=== PATIENT | male | born 1980 | race Caucasian/White ===

== ENCOUNTER 2017-07-26 13:00 | Emergency (ER) | payer OTHER ==
--- NOTE | 2017-07-26 15:30 | ER Document Report ---
ED Medical Screen (RME) - General Chief Complaint: Chest Pain Stated Complaint: CHEST PAIN Time Seen by Provider: 07/26/17 15:26 Notes: The patient is a 36 yo male, PMHx prior spontaneous PTX, presents with 6 hours of left-sided chest pain that is worse with deep breaths. PE: No respiratory distress. Equal breath sounds. Satting 100%. I have greeted and performed a rapid initial assessment of this patient. A comprehensive ED assessment and evaluation of the patient, analysis of test results and completion of the medical decision making process will be conducted by additional ED providers. TRAVEL OUTSIDE OF THE [place] IN LAST 30 DAYS: No - Related Data Allergies/Adverse Reactions: Penicillins Allergy (Verified 07/26/17 13:01) Past Medical History Renal/ Medical History: Denies: Hx Peritoneal Dialysis GI Medical History: Reports: Hx Gastroesophageal Reflux Disease Psychiatric Medical History: Reports: Hx Depression Physical Exam - Vital signs Vitals: Temp Pulse Resp BP Pulse Ox 98.4 F 54 L 18 130/67 H 99 07/26/17 13:09 07/26/17 13:09 07/26/17 13:09 07/26/17 13:09 07/26/17 13:09 Course - Vital Signs Vital signs: Temp Pulse Resp BP Pulse Ox 98.4 F 52 L 18 124/70 100 07/26/17 13:09 07/26/17 15:26 07/26/17 15:26 07/26/17 15:26 07/26/17 15:26
--- NOTE | 2017-07-26 15:58 | RADIOLOGY REPORT (SQ) ---
EXAM DESCRIPTION: CHEST PA/LAT COMPLETED DATE/TIME: 07/26/2017 3:47 pm REASON FOR STUDY: chest pain COMPARISON: None. EXAM PARAMETERS: NUMBER OF VIEWS: two views TECHNIQUE: Digital Frontal and Lateral radiographic views of the chest acquired. RADIATION DOSE: NA LIMITATIONS: none FINDINGS: LUNGS AND PLEURA: No opacities, masses or pneumothorax. No pleural effusion. MEDIASTINUM AND HILAR STRUCTURES: No masses or contour abnormalities. HEART AND VASCULAR STRUCTURES: Heart normal size. No evidence for failure. BONES: No acute findings. HARDWARE: None in the chest. OTHER: No other significant finding. IMPRESSION: NO SIGNIFICANT RADIOGRAPHIC FINDING IN THE CHEST. TECHNICAL DOCUMENTATION: JOB ID: [id number] [employer]- All Rights Reserved
[2017-07-26 16:17] LABS: ABSOLUTE EOSINOPHILS # (AUTO) 0.1 10^3/uL (0.0-0.6); ABSOLUTE LYMPHOCYTES (AUTO) 2.2 10^3/uL (0.5-4.7); ABSOLUTE MONOCYTES (AUTO) 0.5 10^3/uL (0.1-1.4); ABSOLUTE NEUT (AUTO) 5.7 10^3/uL (1.7-8.2); BASOPHILS % (AUTO) 0.4 % (0-2); EOSINOPHILS % (AUTO) 1.5 % (0-6); HEMATOCRIT 44.4 % (37.9-51.0); HEMOGLOBIN 15.3 g/dL (13.5-17.0); MEAN CORPUSCULAR HEMOGLOBIN 32.9 pg (27.0-33.4); MEAN CORPUSCULAR HGB CONC 34.4 g/dL (32.0-36.0); MEAN CORPUSCULAR VOLUME 95 fl (80-97); MONOCYTES % (AUTO) 6.3 % (3-13); PLATELET COUNT 189 10^3/uL (150-450); RED BLOOD COUNT 4.66 10^6/uL (4.35-5.55); RED CELL DISTRIBUTION WIDTH 12.7 % (11.5-14.0); SEGMENTED NEUTROPHILS % (AUTO) 65.8 % (42-78); TOTAL CELLS COUNTED % (AUTO) 100 %; WHITE BLOOD COUNT 8.6 10^3/uL (4.0-10.5)
[2017-07-26 16:40] LABS: ALANINE AMINOTRANSFERASE 24 U/L (21-72); ALBUMIN 4.9 g/dL (3.5-5.0); ALKALINE PHOSPHATASE 68 U/L (38-126); ANION GAP 11 (5-19); ASPARTATE AMINO TRANSFERASE 18 U/L (17-59); BILIRUBIN,DIRECT 0.3 mg/dL (0.0-0.4); BILIRUBIN,TOTAL 0.5 mg/dL (0.2-1.3); BLOOD UREA NITROGEN 11 mg/dL (7-20); CALCIUM 10.1 mg/dL (8.4-10.2); CARBON DIOXIDE 30 mmol/L (22-30); CHLORIDE 104 mmol/L (98-107); CREATINE KINASE 73 U/L (55-170); GLUCOSE 94 mg/dL (75-110); LIPASE 101.2 U/L (23-300); POTASSIUM 4.5 mmol/L (3.6-5.0); SODIUM 144.9 mmol/L (137-145); TOTAL PROTEIN 7.6 g/dL (6.3-8.2)
--- NOTE | 2017-07-26 18:42 | EKG REPORT ---
SEVERITY:- NORMAL ECG - SINUS RHYTHM : Confirmed by: Chandana Tracy MD 26-Jul-2017 18:41:46
--- NOTE | 2017-07-26 20:39 | ER Document Report ---
ED General - General Mode of Arrival: Ambulatory Information source: Patient TRAVEL OUTSIDE OF THE [place] IN LAST 30 DAYS: No <RONEL CHI - Last Filed: 07/27/17 02:52> <DOUGIE CASTANEDA - Last Filed: 07/27/17 02:56> - General Chief Complaint: Chest Pain Stated Complaint: CHEST PAIN Time Seen by Provider: 07/26/17 15:26 Notes: Patient is a 36 year old male that presents to the emergency department today with complaints of left sided chest pain. Patient states that it "hurts to breathe". Patient states that he has had the symptoms in the past when he had a pneumothorax. (RONEL CHI) - Related Data Allergies/Adverse Reactions: Penicillins Allergy (Verified 07/26/17 13:01) Past Medical History - General Information source: Patient, [facility] Records - Social History Smoking Status: Former Smoker Cigarette use (# per day): No Chew tobacco use (# tins/day): Yes Frequency of alcohol use: None Drug Abuse: None Lives with: Family Family History: Reviewed & Not Pertinent Patient has suicidal ideation: No Patient has homicidal ideation: No - Past Medical History Cardiac Medical History: Reports: Hx Hypercholesterolemia GI Medical History: Reports: Hx Gastroesophageal Reflux Disease Psychiatric Medical History: Reports: Hx Depression Traumatic Medical History: Reports: Hx Traumatic Brain Injury Surgical Hx: Negative <RONEL CHI - Last Filed: 07/27/17 02:52> Review of Systems - Review of Systems Constitutional: No symptoms reported EENT: No symptoms reported Cardiovascular: See HPI, Chest pain - left sided Respiratory: denies: Short of breath Gastrointestinal: No symptoms reported Genitourinary: No symptoms reported Male Genitourinary: No symptoms reported Musculoskeletal: No symptoms reported Skin: No symptoms reported Hematologic/Lymphatic: No symptoms reported Neurological/Psychological: No symptoms reported -: Yes All other systems reviewed and negative <RONEL CHI - Last Filed: 07/27/17 02:52> Physical Exam <RONEL CHI - Last Filed: 07/27/17 02:52> <DOUGIE CASTANEDA - Last Filed: 07/27/17 02:56> - Vital signs Vitals: Temp Pulse Resp BP Pulse Ox 98.4 F 54 L 18 130/67 H 99 07/26/17 13:09 07/26/17 13:09 07/26/17 13:09 07/26/17 13:09 07/26/17 13:09 - Notes Notes: Physical Exam: General: Alert, appears well. HEENT: Normocephalic. Atraumatic. PERRL. Extraocular movements intact. Oropharynx clear. Neck: Supple. Non-tender. Respiratory: No respiratory distress. Clear and equal breath sounds bilaterally. Reproducible left lateral chest wall tenderness to palpation. Cardiovascular: Regular rate and rhythm. Abdominal: Normal Inspection. Non-tender. No distension. Normal Bowel Sounds. Back: Non-tender. No deformity or step off. Extremities: Moves all four extremities. Upper extremities: Normal inspection. Normal ROM. Lower extremities: Normal inspection. No edema. Normal ROM. Neurological: Normal cognition. AAOx4. Normal speech. Psychological: Normal affect. Normal Mood. Skin: Warm. Dry. Normal color. (RONEL CHI) Course - Laboratory Result Diagrams: 07/26/17 15:58 07/26/17 15:58 <RONEL CHI - Last Filed: 07/27/17 02:52> - Laboratory Result Diagrams: 07/26/17 15:58 07/26/17 15:58 - Diagnostic Test Radiology reviewed: Reports reviewed - EKG Interpretation by Or EKG shows normal: Sinus rhythm Rate: Normal Rhythm: NSR <DOUGIE CASTANEDA - Last Filed: 07/27/17 02:56> - Re-evaluation Re-evalutation: 07/26 Patient is a 36-year-old male who comes in complaining of chest pain that is worse with breathing and movement. Patient with recent long trip and history of smoking. CTA chest with no acute findings. Troponin negative. No acute findings on EKG. Patient is instructed to take myos-jrx-ofvacdi medications as needed for pain and apply ice or heat. Understands and agrees with plan. Stable for discharge. (DOUGIE CASTANEDA) - Vital Signs Vital signs: Temp Pulse Resp BP Pulse Ox 98.5 F 57 L 16 125/81 100 07/26/17 22:10 07/26/17 22:10 07/26/17 22:10 07/26/17 22:10 07/26/17 22:10 Discharge <RONEL CHI - Last Filed: 07/27/17 02:52> <DOUGIE CASTANEDA - Last Filed: 07/27/17 02:56> - Discharge Clinical Impression: Chest wall pain Condition: Stable Disposition: HOME, SELF-CARE Instructions: Chest Wall Pain ([facility]) Additional Instructions: Please follow-up with your doctor's office. Please take Tylenol or ibuprofen as needed for pain. Avoid doing movements that make your pain worse. Forms: Return to Work Scribe Attestation: 07/26/17 21:56 I personally performed the services described in the documentation, reviewed and edited the documentation which was dictated to the scribe in my presence, and it accurately records my words and actions. (DOUGIE CASTANEDA) Scribe Documentation - Scribe Written by Adama:: Adama Otero, 07/26/2017 [id number] acting as scribe for :: Wodowksi <RONEL CHI - Last Filed: 07/27/17 02:52>
--- NOTE | 2017-07-26 21:34 | RADIOLOGY REPORT (SQ) ---
EXAM DESCRIPTION: CTA CHEST COMPLETED DATE/TIME: 07/26/2017 9:12 pm REASON FOR STUDY: pleuritic cp, recent car trip COMPARISON: None. TECHNIQUE: CT scan of the chest performed using helical scanning technique with dynamic intravenous contrast injection. Images reviewed with lung, soft tissue and bone windows. Reconstructed coronal and sagittal MPR images reviewed. Additional 3 dimensional post-processing performed to develop Maximal Intensity Projection images (IN P). All images stored on PACS. All CT scanners at this facility use dose modulation, iterative reconstruction, and/or weight based d osing when appropriate to reduce radiation dose to as low as reasonably achievable (ALARA). [facility]: Dose Right [facility]: CareDose [facility]: Dose Right [facility]: Teradose 4D [facility]: Cort[employer] Systems CONTRAST TYPE AND DOSE: contrast/concentration: Isovue 370.00 mg/ml; Total Contrast Delivered: 65.0 ml; Total Saline Delivered: 65.0 ml Contrast bolus adequate for pulmonary arteries and aorta. RENAL FUNCTION: None required. The patient is less than 50 years old. RADIATION DOSE: CT Rad equipment meets quality standard of care and radiation dose reduction techniq ues were employed. CTDIvol: 9.9 - 14.3 mGy. DLP: 557 mGy-cm. . LIMITATIONS: None. FINDINGS: LUNGS AND PLEURA: No masses, infiltrates, pneumothorax. No pleural effusions, calcificati ons. AORTA AND GREAT VESSELS: No aneurysm. Contrast bolus not optimized for the aorta. HEART: No pericardial effusion. No significant coronary artery calcifications. PULMONARY ARTERIES: No emboli visualized in the main pulmonary arteries or the segmental branches. HILAR AND MEDIASTINAL STRUCTURES: No identified masses or abnormal nodes. HARDWARE: None in the chest. UPPER ABDOMEN: No significant findings. Limited exam. THYROID AND OTHER SOFT TISSUES: No masses. No adenopathy. BONES: No acute or significant finding. 3D MIPS: Confirm above findings. OTHER: No other significant finding. IMPRESSION: NORMAL CTA OF THE CHEST. NO PULMONARY EMBOLI. COMMENT: Quality ID # [id number]: Final reports with documentation of one or more dose reduction techniques (e.g., Automated exposure control, adjustment of the mA and/or kV according to patient size, use of iterative reconstruction technique) TECHNICAL DOCUMENTATION: JOB ID: [id number] [employer]- All Rights Reserved
[2017-07-26 22:15] VITALS: BP 125/81
== END 2017-07-26 22:15 | disposition home or self-care (01) ==
LOC: ER 13:00
DX: R07.89 Other chest pain (principal); Z88.0 Allergy status to penicillin; R09.89 Other specified symptoms and signs involving the circulatory and respiratory systems; Z87.891 Personal history of nicotine dependence
CPT/HCPCS: 36415; 71046; 71275; 80053; 82550; 83690; 84484; 85025; 93005; 93010; 99285

== ENCOUNTER 2018-04-03 11:18 | Emergency (ER) | payer OTHER ==
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
[2018-04-03 12:46] VITALS: BP 133/77
== END 2018-04-03 12:47 | disposition home or self-care (01) ==
LOC: ER 11:18
DX: Z76.0 Encounter for issue of repeat prescription (principal); F41.9 Anxiety disorder, unspecified; F43.10 Post-traumatic stress disorder, unspecified
CPT/HCPCS: 99281